=== PATIENT | female | born 1985 | race Caucasian/White ===

== ENCOUNTER 2020-08-15 06:34 | Day surgery (SDC) | payer OTHER ==
--- OUTSIDE RECORDS SUMMARY | 2020-08-15 06:39 | XMS REPORT | Clinical Summary ---
:1985 Author Organization [facility] Address [address] [place] [address] Care Team Providers Name Role Phone Benjamin Loera MD Primary Care Provider Allergies Active Allergy Reactions Severity Noted Date Comments Codeine Itching 02/02/2017 Medications No known medications Active Problems Not on file Surgical History Surgery Date Site/Laterality Comments ORTHOPEDIC SURGERY 2012,2013 Medical History Medical History Date Comments Anemia CRPS 1, lower extremity Family History Medical History Relation Name Comments No Known Problems Father No Known Problems Mother No Known Problems Other siblings No Known Problems Other children Relation Name Status Comments Father Alive Mother Alive Other siblings Alive Other children Alive Social History Tobacco Use Types Packs/Day Years Used Date Never Smoker Smokeless Tobacco: Never Used Alcohol Use Drinks/Week oz/Week Comments Yes Sex Assigned at Date Recorded Not on file Last Filed Vital Signs Not on file Plan of Treatment Health Maintenance Due Date Last Done Comments COVID-19 VACCINE (1 of 2) 2001 CERVICAL CANCER SCREENING 2006 INFLUENZA VACCINE 02/24/2020 Results Not on fileafter 08/15/2019
--- OUTSIDE RECORDS SUMMARY | 2020-08-15 06:40 | XMS REPORT | Continuity of Care Document ---
:1985 Author Organization [facility] t Address [address] [place] [address] Care Team Providers Name Role Phone Luz Maria MCALLISTER Primary Care Physician Payers Payer Name Policy Type Policy Number Effective Date Expiration Date S ource Problems This patient has no known problems. Allergies, Adverse Reactions, Alerts Allergy Allergy Status Severity Reaction(s) Onset Inactive Treating Comm ents Source Name Type Date Date Clinician Codefer Propensi Active Itching [place] [facility] to 02-02 [facility] adverse 00:00: st reaction 00 s to drug Family History Family Member Diagnosis Comments Start Date Stop Date Source Natural father No Known Problems Cesario Jaimeist Natural mother No Known Problems Cesario White[place] Other No Known Problems [facility] Social History Social Habit Start Date Stop Date Quantity Comments Source Sex Assigned At [facility] ethodist Tobacco use and 2017-02-02 2017-02-02 Never used [facility] exposure 00:00:00 00:00:00 Alcohol intake 2017-02-02 2017-02-02 Current drinker [place] [facility] 00:00:00 00:00:00 of alcohol (finding) Smoking Status Start Date Stop Date Source Never smoker [facility] Medications This patient has no known medications. Procedures This patient has no known procedures. Plan of Care Planned Activity Planned Date Details Comments Source Future Scheduled 2020-02-24 INFLUENZA VACCINE [place] [facility] Test 00:00:00 [code = INFLUENZA VACCINE] Future Scheduled 2006 Screening for [facility]ist Test 00:00:00 malignant neoplasm of cervix (procedure) [code = 890584691] Future Scheduled 2001 COVID-19 VACCINE (1 [place] [facility] Test 00:00:00 of 2) [code = COVID-19 VACCINE (1 of 2)] Results This patient has no known results.
[2020-08-15 06:48] LABS: Specific Gravity 1.025 (1.005-1.030)
[2020-08-15] MEDS ORDERED: Ringers Lactate 1,000 ML IV ONE (07:05)
[2020-08-15 07:17] VITALS: O2SAT 100
[2020-08-15] MEDS ORDERED: FENTANYL CITR 100 MCG/2 ML ONE (07:25)
[2020-08-15] MEDS ORDERED: MIDAZOLAM HCL 2 MG/2 ML INJ ONE (07:25)
[2020-08-15] MEDS ORDERED: propofoL 200 MG/20 ML VIAL IV ONE (07:25)
[2020-08-15] MEDS ORDERED: ONDANSETRON 4 MG/2 ML VIAL ONE (07:29)
[2020-08-15] MEDS ORDERED: NA CHLORIDE 0.9% 1,000 ML ONE (07:42)
[2020-08-15] MEDS: LIDOCAINE 1% W/EPI 1:100,000 10 ML VIAL ONE ×2 (07:46→08:01)
[2020-08-15] MEDS ORDERED: KETOROLAC 30 MG/ML INJ ONE (08:24)
[2020-08-15] MEDS: HYDROMORPHONE HCL 1 MG/ML INJ ONE ×2 (08:31→08:42)
[2020-08-15] MEDS ORDERED: LIDOCAINE 1% MPF 2 ML AMPULE ONE (08:34)
[2020-08-15] MEDS ORDERED: MEPERIDINE HCL 25 MG/ML SYR ONE ×2 (08:40→08:46)
[2020-08-15] MEDS: MIDAZOLAM HCL 2 MG/2 ML INJ ONE ×2 (08:46→08:51)
[2020-08-15 09:44] VITALS: BP 112/51; TEMP 97.8
--- NOTE | 2020-08-15 10:25 | OP ---
Date of Procedure: 08/15/2020 Surgeon: Anila Horowitz MD Preoperative Diagnoses: Retained foreign body (intrauterine device ), history of menorrhagia and dys menorrhea. Prior to her intrauterine device, she has had 3 intrauterine devices in 6 months one afte r the other. The patient with complex regional pain syndrome type 1, severe right lower extremity sy mptoms from as a consequence of the syndrome and there is anxiety or pain. Postoperative Diagnoses: Retained foreign body (intrauterine device ), history of menorrhagia and dy smenorrhea. Prior to her intrauterine device, she has had 3 intrauterine devices in 6 months one aft er the other. The patient with complex regional pain syndrome type 1, severe right lower extremity s ymptoms from as a consequence of the syndrome and there is anxiety or pain. Procedures Performed: Operative hysteroscopy, removal of foreign body (intrauterine device), inserti on of levonorgestrel intrauterine system. Anesthesia: General with LMA. Specimens: Old intrauterine device. Complications: No other complications. Drains: No drains. Condition: Stable. Indications: The patient is a 35-year-old, 2, para 2, with past history of menorrhagia and s evere dysmenorrhea passing clots since placement of the levonorgestrel intrauterine device. All this has gotten better. She has had diagnosis of complex regional pain syndrome in the past 3 years and has been counseled on the contraindication of the and delivery process and so she was place d on an intrauterine device. The intrauterine device was attempted to be removed in the outpatient o ffice, however, the strings are not visible and on time multiple attempts, still was unable to retrie ve this and so she was consented to come to the hospital for hysteroscopic removal due to the pain be ing a trigger for her pain syndrome, which also triggers severe vasoconstriction of the right lower e xtremity. She was consented and brought to the hospital after the hospital approval process. Description Of Procedure: After informed consent was re-verified this morning, she was taken back to operating room, placed in a supine fashion on the operating table. After LMA was given, she was jj ariel in dorsal lithotomy position. Speculum was placed. Vulva, vagina, and perineum were prepped and draped in a sterile fashion. Speculum was placed to expose the cervix. Anterior lip was injected w ith 1% lidocaine mixed with 1:100,000 epinephrine, 8 cc injected here. Anterior lip grasped with 2 A llis clamps and operative hysteroscope with the polyp forceps was introduced into the cervical canal and under direct visualization. The canal was traversed and the strings were seen at the very top of the canal at the internal os. These were grasped with the polyp forceps and the intrauterine device was pulled out without any problems and I completely retrieved it. It was inspected and handed off for permanent pathology. The cervix was then reentered with the scope and taken back to the fundus. I examined the cavity. S light scarring was noted. However, both tubal ostia were well visualized. It was sounded to 8.5 cm. Scope was then pulled out. Then, the new Mirena IUD was opened up and loaded and inserted to 8 cm, deployed, and the lens inserter removed without any problems and the strings cut to 3 cm. The Allis clam ps were removed. Speculum removed. Instrument, needle, and sponge counts were correct at the end of the case. The patient tolerated the procedure well. She was recovered from anesthesia after giving 30 mg of Toradol intravenously and woken up without much pain, taken to the Postanesthesia Care Unit in stable condition. She has a 1 month follow up with me. Estimated blood loss was minimal. FLORI/MURIEL Voice ID: [id number] Report ID: [id number]
== END 2020-08-15 09:49 | disposition home health service (06) ==
LOC: OR 06:34
PROVIDERS: ATTEND Obstetrics & Gynecology
PROC: 0UH98HZ Insertion of Contraceptive Device into Uterus, Via Natural or Artificial Opening Endoscopic (ICD-10-PCS; 2020-08-15)
PROC: 0UPD8HZ Removal of Contraceptive Device from Uterus and Cervix, Via Natural or Artificial Opening Endoscopic (ICD-10-PCS; principal; 2020-08-15 07:30)
DX: T83.32XA Displacement of intrauterine contraceptive device, initial encounter (principal); G90.521 Complex regional pain syndrome I of right lower limb; F41.9 Anxiety disorder, unspecified; G43.909 Migraine, unspecified, not intractable, without status migrainosus; N94.6 Dysmenorrhea, unspecified; Z20.822 Contact with and (suspected) exposure to COVID-19
CPT/HCPCS: 58300; 58579; 81025; 88300; U0002; J2704; J2250 ×2; J3010; J2175 ×2; J2001; J1170; J7120; J7030; J2405